=== PATIENT | male | born 1995 | race Two or more races ===

== ENCOUNTER 2017-06-16 15:05 | Emergency (ER) | payer OTHER ==
[~2017-06-16] VITALS: Ht 167.6 cm; Wt 81.6 kg
[2017-06-16 15:05] VITALS: BP 133/64
== END 2017-06-16 15:45 | disposition home or self-care (01) ==
LOC: ER 15:09
DX: K21.9 Gastro-esophageal reflux disease without esophagitis (principal); F90.9 Attention-deficit hyperactivity disorder, unspecified type
CPT/HCPCS: A4606; Z7502; Z7610